=== PATIENT | male | born 1950 | race Caucasian/White ===

== ENCOUNTER → 2016-09-29 | Outpatient (CLI) | payer MEDICARE ==
--- NOTE | 2016-10-01 15:30 | XCELERA REPORT ---
[address] [address] Lower Extremity Arterial Evaluation Name: GLENN GARCIA Age: 66 yrs Gender: Male : 1950 Patient Status: Outpatient Patient Location: Study Date: 09/29/2016 11:14 AM Procedure: A color flow and duplex scan of the lower extremity arteries was performed bilaterally with velocity and waveform anaylsis. Ankle brachial indicies performed. Reason For Study: PVD Ordering Physician: TOMMIE HOLBROOK Performed By: Frida Hendrickson Measurements and Calculations Right Left FIELD ASSOCIATE PSV 106.2 67.2 cm/sec Prox PFA PSV 55.6 48.0 cm/sec Prox SFA PSV 82.3 72.0 cm/sec Mid SFA PSV -69.8 -73.5 cm/sec Dist SFA PSV -93.8 -74.3 cm/sec Prox Pop A PSV 85.0 87.7 cm/sec Dist MARIO PSV 50.8 61.6 cm/sec Dist [employer]P [employer] PSV 107.5 88.6 cm/sec Elias Pedis PSV 40.4 29.7 cm/sec Right Side Arterial Evaluation Normal velocity and triphasic waveforms noted from the Common Femoral artery to the infrageniculate vessels. 0 % stenosis noted. Ankle Brachial index is 1.44. Left Side Arterial Evaluation Normal velocity and triphasic waveforms noted from the Common Femoral artery to the infrageniculate vessels. 0 % stenosis noted. Ankle Brachial index is 1.31. Interpretation Summary No hemodynamically significant lesions in the bilateral lower extremities, on duplex imaging, at rest. : TOMMIE HOLBROOK > David Jurado
== END ==
LOC: SP 10:30
PROVIDERS: ATTEND Internal Medicine Endocrinology, Diabetes & Metabolism
DX: I73.9 Peripheral vascular disease, unspecified (principal)
CPT/HCPCS: 93925

== ENCOUNTER 2016-11-17 12:10 | Day surgery (SDC) | payer MEDICARE, BC ==
[~2016-11-17 12:10] MED LIST: DIPHENHYDRAMINE HCL 50 MG/ML VIAL ONE; EPINEPHRINE INJ 1 MG/10 ML DISP.SYRIN ONE; FLUMAZENIL INJ 0.5 MG/5 ML VIAL IV ONE; GLUCAGON,HUMAN RECOMB 1 MG INJ ONE; NALOXONE HCL INJ/PF 0.4 MG/1 ML SDV ONE; ONDANSETRON HCL INJ/PF 4 MG/2 ML SDV ONE
[2016-11-17] MEDS: MIDAZOLAM 2 MG/2 ML INJ ONE ×3 (13:00→13:17)
[2016-11-17] MEDS: FENTANYL CITRATE INJ/PF 100 MCG/2 ML AMPUL ONE ×2 (13:05→13:09)
--- NOTE | 2016-11-17 13:53 | Operative Report ---
Operative Report DATE OF SURGERY: 11/17/16 Operative Report: The risks, benefits and alternatives of the procedure including risks of bleeding, perforation requiring surgery are explained to the patient detail and informed consent was obtained. Patient was taken back to the endoscopy suite and placed in the left, lateral decubital position. A rectal examination was done which did not reveal any masses tenderness or fissures. Timeout was called. Conscious sedation medications are provided. A rectal examination was done which did not reveal any masses, tears or fissures. An Olympus video scope was inserted into the patient's rectum. The scope was then gradually advanced all the way to the cecum. The cecum was identified by the usual anatomical landmarks including the ileocecal valve as well as appendiceal office. Photodocumentation was obtained. The scope was then sequentially pulled back. The rest segments of the colon including the ascending colon, hepatic flexure, transverse colon, splenic flexure, descending colon and finding to the rectosigmoid portions of the colon. Retroflexion maneuver was performed. The risks benefits and alternatives of the procedure explained to the patient in detail and informed consent is obtained. Another GIF Olympus video scope was inserted into the patient's mouth and hypopharynx, the esophagus is identified intubated and insufflated ,the scope was then advanced through the esophagus stomach and duodenum, retroflexion maneuver is done, the esophagus stomach and first and second portions of the duodenum examined PREOPERATIVE DIAGNOSIS: Personal history of polyp. Patient states that he had colonoscopy 10-15 years ago. Blood in stool. Change of bowel habits. Anorexia. Weight loss. Dyspepsia POSTOPERATIVE DIAGNOSIS: Large cecal polyp noted attached to a very large base not able to remove via therapeutic colonoscopy. Spoke with Dr. Keita, biopsies obtained, malignancy workup might be needed will need right hemicolectomy for removal. Significant diverticulosis. Internal hemorrhoids. Gastritis. Duodenitis. Biopsies obtained to rule out for Helicobacter pylori OPERATION: Colonoscopy with biopsy. EGD with biopsy SURGEON: ZAYDA ARCE ANESTHESIA: Moderate Sedation - 5 mg of Versed, 100 mcg of fentanyl. Conscious sedation monitoring time 30 minutes. TISSUE REMOVED OR ALTERED: Biopsies obtained of the polyp. These are likely superficial and may be a malignancy within the deeper portions of the polyp. Gastric biopsies obtained to rule out Helicobacter pylori COMPLICATIONS: None. ESTIMATED BLOOD LOSS: None. INTRAOPERATIVE FINDINGS: As described above. PROCEDURE: Patient tolerated procedure well. No immediate postprocedure complications are noted. Patient discharged in good condition. Discharge date 11/17/2016. Discharge diet: Regular. Discharge activity: Regular. 2-3 week follow-up to discuss findings. Patient is instructed to call the office or proceed to the emergency room should there be any further problems or questions. We will wait on biopsies. Case has been discussed with Dr. Keita
[2016-11-17 14:32] VITALS: BP 102/65
== END 2016-11-17 14:33 | disposition home or self-care (01) ==
LOC: END 12:10
PROVIDERS: ATTEND Internal Medicine Gastroenterology
PROC: 0DB68ZX Excision of Stomach, Via Natural or Artificial Opening Endoscopic, Diagnostic (ICD-10-PCS; principal; 2016-11-17 13:00)
PROC: 0DBH8ZX Excision of Cecum, Via Natural or Artificial Opening Endoscopic, Diagnostic (ICD-10-PCS; 2016-11-17 13:00)
DX: K92.1 Melena (principal); D12.0 Benign neoplasm of cecum; K29.50 Unspecified chronic gastritis without bleeding; R63.4 Abnormal weight loss; I10 Essential (primary) hypertension; E11.9 Type 2 diabetes mellitus without complications; E78.00 Pure hypercholesterolemia, unspecified; M19.90 Unspecified osteoarthritis, unspecified site; E78.5 Hyperlipidemia, unspecified; Z79.1 Long term (current) use of non-steroidal anti-inflammatories (NSAID); Z79.84 Long term (current) use of oral hypoglycemic drugs; Z79.82 Long term (current) use of aspirin; Z68.26 Body mass index [BMI] 26.0-26.9, adult; Z86.010 Personal history of colon polyps
CPT/HCPCS: 43239; 45380; 82962; 88342 ×2; 88305 ×2; J2250; J3010; J0171; J1200; J1610; J2310; J2405; J3490

== ENCOUNTER 2016-12-20 09:19 | Inpatient (IN) | payer MEDICARE, BC ==
[2016-12-13 11:01] LABS: HEMATOCRIT 50.2 % (37.9-51.0); HGB HCT DIFFERENCE -2.2; MEAN CORPUSCULAR HEMOGLOBIN 27.9 pg (27.0-33.4); MEAN CORPUSCULAR HGB CONC 31.8 g/dL (32.0-36.0); MEAN CORPUSCULAR VOLUME 88 fl (80-97); RED BLOOD COUNT 5.73 10^6/uL (4.35-5.55); RED CELL DISTRIBUTION WIDTH 14.3 % (11.5-14.0); WHITE BLOOD COUNT 11.7 10^3/uL (4.0-10.5)
[2016-12-13 11:23] LABS: ANION GAP 14 (5-19); BLOOD UREA NITROGEN 22 mg/dL (7-20); CALCIUM 9.4 mg/dL (8.4-10.2); CARBON DIOXIDE 24 mmol/L (22-30); CHLORIDE 102 mmol/L (98-107); CREATININE RESULT 0.81 mg/dL (0.52-1.25); GLUCOSE 89 mg/dL (75-110); POTASSIUM 4.7 mmol/L (3.6-5.0)
[2016-12-13 11:51] LABS: CARCINOEMBRYONIC ANTIGEN 1.6 ng/mL (<3.0)
--- NOTE | 2016-12-13 12:40 | EKG REPORT ---
SEVERITY:- NORMAL ECG - SINUS RHYTHM : Confirmed by: Marybeth Bocanegra MD 13-Dec-2016 12:40:07
[~2016-12-20 09:19] MED LIST changes: -DIPHENHYDRAMINE HCL 50 MG/ML VIAL ONE; -EPINEPHRINE INJ 1 MG/10 ML DISP.SYRIN ONE; +ERTAPENEM SODIUM 1 GM in NORMAL SALINE 50 ML IV PRN; -FLUMAZENIL INJ 0.5 MG/5 ML VIAL IV ONE; -GLUCAGON,HUMAN RECOMB 1 MG INJ ONE; +GLYCOPYRROLATE INJ 0.4 MG/2 ML VIAL ONE; +LACTATED RINGERS 1000 ML IV PRN; +LIDOCAINE 0.5% INJ-PF (5 MG/ML) 50 ML SDV SUBCUT PRN; +LIDOCAINE 2% INJ-PF (20 MG/ML) 10 ML AMPUL ONE; +METOCLOPRAMIDE HCL INJ/PF 10 MG/2 ML SDV ONE; -NALOXONE HCL INJ/PF 0.4 MG/1 ML SDV ONE; +NEOSTIGMINE METHYLSULFATE 10 MG/10 ML VIAL ONE; +ROCURONIUM BROMIDE INJ 50 MG/5 ML VIAL IV ONE; +SUCCINYLCHOLINE CHLORIDE INJ 200 MG/10 ML VIAL ONE
[2016-12-20] MEDS ORDERED: BUPIVACAINE HCL 0.25 % INJ/PF (2.5 MG/1 ML) 30 ML VIAL ONE (10:08)
[2016-12-20] MEDS ORDERED: PROPOFOL INJ 200 MG/20 ML VIAL IV ONE (13:48)
[2016-12-20] MEDS ORDERED: IBUPROFEN INJ 800 MG/8 ML VIAL IV ONE (13:48)
[2016-12-20] MEDS ORDERED: FENTANYL CITRATE INJ/PF 250 MCG/5 ML AMPULE ONE (13:48)
[2016-12-20] MEDS ORDERED: MIDAZOLAM 2 MG/2 ML INJ ONE (13:48)
[2016-12-20] MEDS ORDERED: MORPHINE SULFATE 10 MG/ML INJ ONE (13:49)
[2016-12-20] MEDS ORDERED: OXYCODONE-ACETAMINOPHEN 5-325 MG TABLET PO PRN ×2 (15:48)
[2016-12-20] MEDS ORDERED: PROMETHAZINE HCL INJ 25 MG/1 ML VIAL IV PRN ×2 (15:48)
[2016-12-20] MEDS ORDERED: DIPHENHYDRAMINE HCL 50 MG/ML VIAL IV PRN (15:48)
[2016-12-20] MEDS ORDERED: FENTANYL CITRATE INJ/PF 100 MCG/2 ML AMPUL IV PRN ×3 (15:48)
[2016-12-20] MEDS ORDERED: MEPERIDINE HCL/PF INJ 25 MG/1 ML DISP.SYRIN IV PRN (15:48)
[2016-12-20] MEDS ORDERED: MORPHINE SULFATE 10 MG/ML INJ IV PRN (15:48)
[2016-12-20] MEDS ORDERED: BUPIVACAINE HCL 0.25 % INJ/PF (2.5 MG/1 ML) 30 ML VIAL INJ ONE (16:45)
[2016-12-20] MEDS ORDERED: DEXTROSE 50%-WATER 25 GM/50 ML DISP.SYRIN IV PRN ×4 (17:16→17:22)
[2016-12-20] MEDS ORDERED: GLUCAGON,HUMAN RECOMB 1 MG INJ SUBCUT PRN (17:16)
[2016-12-20] MEDS ORDERED: DEXTROSE 40% GEL 15 GM TUBE PO PRN ×4 (17:16→17:22)
[2016-12-20] MEDS ORDERED: ONDANSETRON HCL INJ/PF 4 MG/2 ML SDV IV PRN (17:16)
--- NOTE | 2016-12-20 17:16 | Operative Report ---
Operative Report DATE OF SURGERY: 12/20/16 PREOPERATIVE DIAGNOSIS: Cecal polyp POSTOPERATIVE DIAGNOSIS: Cecal cancer OPERATION: Laparoscopic right hemicolectomy SURGEON: ALESSANDRO BLANC ANESTHESIA: GA TISSUE REMOVED OR ALTERED: Right colon COMPLICATIONS: None ESTIMATED BLOOD LOSS: 20 cc INTRAOPERATIVE FINDINGS: Large cecal mass with multiple lymph nodes palpable in the mesentery of the right colon. Bilateral inguinal hernias-- right side small left side moderate. Slightly fatty appearing liver otherwise normal. No abnormalities on the peritoneum. No abnormalities palpable on the omentum. PROCEDURE: Informed consent was obtained. Patient was brought to the operating room and placed on the operating room table in supine position. After satisfactory induction of general anesthesia patient's abdomen was prepped and draped in the usual sterile fashion. A supraumbilical midline incision was made dissection carried out through the fascia and the peritoneal cavity was entered without difficulty. A laparoscopic hand port was then inserted. 5 mm trocar was placed in the subxiphoid location. Another 5 mm trocar was placed between the hand port and the subxiphoid trocar site. A third 5 mm trocar was placed in the left lateral mid abdomen. Pneumoperitoneum was produced with good patient toleration. Laparoscopy demonstrated no peritoneal studding. No omental masses. No liver lesions although it had a slight fatty appearance. There was a adhesion at the left lateral segment of the liver. The liver felt smooth with no palpable masses. Palpable firm golf ball size mass was palpable in the cecum. There was a small right inguinal hernia noted and a moderate sized left inguinal hernia noted with no evidence of incarceration. Anterior surface of the stomach appeared normal. The right colon was mobilized at the line of Toldt. The hepatic flexure was completely mobilized. The hepatic flexure and the proximal transverse colon was mobilized off of the omentum. The duodenum was visualized and protected during the dissection. After sufficient mobility of the right colon was obtained, the right colon was delivered out of the peritoneum through the laparoscopic hand port. The right colon mass felt very suspicious for invasive carcinoma. There were multiple large nodes in the right colon mesentery. The ileocolic artery was taken near its origin to ensure complete mesenteric excision. It was taken by clamping dividing and tying. The terminal ileum was divided about 10 cm from the ileocecal junction using a CHRIS stapling device. The transverse colon was divided just right of midline using a CHRIS stapling device. The entire right colon mesentery was excised. Hemostasis appeared excellent. The specimen was opened off of the table revealing a highly suspicious cecal mass that felt very firm consistent with cecal cancer. The specimen was submitted to pathology. The transverse colon remnant appeared well vascularized and had triphasic Doppler signals. The terminal ileum and appear well vascularized as well. A [id number] functional end-to-end anastomosis was then created using a CHRIS stapling device. The enterotomy created to introduce the stapling device was closed with a TA stapling device. The anastomosis appeared secure with no ischemia. Hemostasis appeared excellent. Omentum was draped over the anastomosis. Pneumoperitoneum was reproduced hemostasis appeared excellent all trochars were removed under the direct vision of the laparoscope to ensure hemostasis. the HandPort fascial defect was closed with running PDS suture. All skin incisions were closed with alvin. Marcaine was injected at the incision sites. Patient tolerated procedure well with no apparent complications and was taken to the recovery area in stable condition.
[2016-12-20] MEDS ORDERED: GLUCAGON,HUMAN RECOMB 1 MG INJ IM PRN (17:22)
[2016-12-20] MEDS ORDERED: INSULIN REG, HUMAN 100 UNIT/ML 3 ML VIAL (PYX) SUBCUT PRN (17:22)
[2016-12-20] MEDS ORDERED: ONDANSETRON HCL INJ/PF 4 MG/2 ML SDV ONE (17:44)
[2016-12-20] MEDS ORDERED: PROMETHAZINE HCL INJ 25 MG/1 ML VIAL ONE (18:15)
[2016-12-20] MEDS: ATORVASTATIN CALCIUM 10 MG TABLET PO SCH (21:36)
[2016-12-20] MEDS: NORMAL SALINE 1000 ML 1,000 ML IV PRN (21:41)
[2016-12-20] MEDS: MORPHINE SULFATE 10 MG/ML INJ IV PRN (21:47)
--- NOTE | 2016-12-20 23:43 | PDOC PROGRESS REPORT ---
Subjective Subjective:: feels well. had nausea earlier. Better now. Only mild pain. Physical Exam Vital Signs: Temp Pulse Resp BP Pulse Ox 97.8 F 84 16 129/62 H 95 12/20/16 22:30 12/20/16 22:30 12/20/16 22:30 12/20/16 22:30 12/20/16 22:30 Intake & Output 12/19/16 12/20/16 12/21/16 06:59 06:59 06:59 Intake Total 2950 Output Total 580 Balance 2370 General appearance: PRESENT: no acute distress, cooperative Respiratory exam: PRESENT: clear to auscultation sunil Cardiovascular exam: PRESENT: RRR GI/Abdominal exam: PRESENT: other - Soft, nondistended, minimal tenderness. Results Laboratory Results: 12/13/16 10:20 12/13/16 10:20 Assessment & Plan - Diagnosis (1) Cecal cancer Is this a current diagnosis for this admission?: YesPlan: Status post laparoscopic right hemicolectomy. Patient looks good. Will likely start clear liquids tomorrow if his nausea has completely resolved.
[2016-12-21] MEDS: MORPHINE SULFATE 10 MG/ML INJ IV PRN ×5 (04:02→23:40)
[2016-12-21] MEDS: LANSOPRAZOLE 30 MG TAB.RAP.DR PO SCH (05:39)
[2016-12-21] MEDS: NORMAL SALINE 1000 ML 1,000 ML IV PRN (05:40)
[2016-12-21 06:17] LABS: HEMATOCRIT 47.3 % (37.9-51.0); HEMOGLOBIN 15.3 g/dL (13.5-17.0); HGB HCT DIFFERENCE -1.4; MEAN CORPUSCULAR HEMOGLOBIN 28.5 pg (27.0-33.4); MEAN CORPUSCULAR HGB CONC 32.4 g/dL (32.0-36.0); MEAN CORPUSCULAR VOLUME 88 fl (80-97); RED BLOOD COUNT 5.39 10^6/uL (4.35-5.55); RED CELL DISTRIBUTION WIDTH 13.4 % (11.5-14.0); WHITE BLOOD COUNT 14.6 10^3/uL (4.0-10.5)
[2016-12-21 06:47] LABS: ANION GAP 11 (5-19); BLOOD UREA NITROGEN 14 mg/dL (7-20); CALCIUM 9.2 mg/dL (8.4-10.2); CARBON DIOXIDE 24 mmol/L (22-30); CHLORIDE 102 mmol/L (98-107); CREATININE RESULT 0.83 mg/dL (0.52-1.25); GLUCOSE 121 mg/dL (75-110); POTASSIUM 5.8 mmol/L (3.6-5.0)
--- NOTE | 2016-12-21 09:48 | PDOC PROGRESS REPORT ---
Subjective Progress Note for:: 12/21/16 Subjective:: Feels well. No nausea. Hungry. Physical Exam Vital Signs: Temp Pulse Resp BP Pulse Ox 98.2 F 79 18 143/71 H 99 12/21/16 08:00 12/21/16 08:00 12/21/16 08:00 12/21/16 08:00 12/21/16 08:00 Intake & Output 12/20/16 12/21/16 12/22/16 06:59 06:59 06:59 Intake Total 3798 Output Total 1480 Balance 2318 Weight 88.4 kg General appearance: PRESENT: no acute distress, cooperative Respiratory exam: PRESENT: clear to auscultation sunil Cardiovascular exam: PRESENT: RRR GI/Abdominal exam: PRESENT: other - Soft, nondistended, minimal tenderness. Diminished bowel sounds Extremities exam: PRESENT: other - No swelling. Results Laboratory Results: 12/21/16 05:39 12/21/16 05:39 12/21/16 12/21/16 05:39 05:39 WBC 14.6 H RBC 5.39 Hgb 15.3 Hct 47.3 MCV 88 MCH 28.5 MCHC 32.4 RDW 13.4 Plt Count 175 Sodium 137.0 Potassium 5.8 H Chloride 102 Carbon Dioxide 24 Anion Gap 11 BUN 14 Creatinine 0.83 Est GFR ( Amer) > 60 Est GFR (Non-Af Amer) > 60 Glucose 121 H Calcium 9.2 Assessment & Plan - Diagnosis (1) Cecal cancer Is this a current diagnosis for this admission?: YesPlan: Status post laparoscopic right hemicolectomy. Patient looks good. Start liquids. DC Null. Continue with patient ambulation.
[2016-12-21] MEDS ORDERED: NORMAL SALINE 1000 ML 1,000 ML IV PRN (09:49)
[2016-12-21] MEDS ORDERED: (PENDING PHARMACY ID) (Omeprazole [Omeprazole] 1 TAB) PO SCH (10:00)
[2016-12-21] MEDS ORDERED: (PENDING PHARMACY ID) (Lisinopril [Prinivil 20 Mg Tablet] 20 MG) PO SCH (10:00)
[2016-12-21] MEDS: ENOXAPARIN SODIUM INJ 40 MG/0.4 ML DISP.SYRIN SUBCUT SCH (10:49)
[2016-12-21] MEDS: AMLODIPINE BESYLATE 5 MG TABLET PO SCH (10:49)
[2016-12-21] MEDS: LISINOPRIL 10 MG TABLET PO SCH (10:49)
[2016-12-21 11:20] LABS: ANION GAP 13 (5-19); BLOOD UREA NITROGEN 12 mg/dL (7-20); CALCIUM 8.9 mg/dL (8.4-10.2); CARBON DIOXIDE 21 mmol/L (22-30); CHLORIDE 101 mmol/L (98-107); CREATININE RESULT 0.81 mg/dL (0.52-1.25); GLUCOSE 144 mg/dL (75-110); SODIUM 135.4 mmol/L (137-145)
[2016-12-21 11:30] LABS: POTASSIUM 4.5 mmol/L (3.6-5.0)
[2016-12-21] MEDS: ATORVASTATIN CALCIUM 10 MG TABLET PO SCH (21:46)
[2016-12-21] MEDS ORDERED: ZOLPIDEM TARTRATE 5 MG TABLET PO ONE (23:00)
[2016-12-22] MEDS: LANSOPRAZOLE 30 MG TAB.RAP.DR PO SCH (05:50)
[2016-12-22] MEDS: LISINOPRIL 10 MG TABLET PO SCH (09:30)
[2016-12-22] MEDS: AMLODIPINE BESYLATE 5 MG TABLET PO SCH (09:30)
--- NOTE | 2016-12-22 09:48 | PDOC PROGRESS REPORT ---
Subjective Progress Note for:: 12/22/16 Subjective:: Feels well. Still has not passed any gas. Tolerating clears. Physical Exam Vital Signs: Temp Pulse Resp BP Pulse Ox 99.8 F 85 20 91/66 L 96 12/22/16 08:00 12/22/16 08:00 12/22/16 08:00 12/22/16 08:00 12/22/16 08:00 Intake & Output 12/21/16 12/22/16 12/23/16 06:59 06:59 06:59 Intake Total 3798 1085 Output Total 1480 Balance 2318 1085 Weight 88.4 kg 87.2 kg General appearance: PRESENT: no acute distress, cooperative Respiratory exam: PRESENT: clear to auscultation sunil Cardiovascular exam: PRESENT: RRR GI/Abdominal exam: PRESENT: other - Soft, nondistended, active bowel sounds. Mild tenderness with no peritoneal signs. Extremities exam: PRESENT: other - No swelling Results Laboratory Results: 12/21/16 05:39 12/21/16 10:55 12/21/16 10:55 Sodium 135.4 L Potassium 4.5 D Chloride 101 Carbon Dioxide 21 L Anion Gap 13 BUN 12 Creatinine 0.81 Est GFR ( Amer) > 60 Est GFR (Non-Af Amer) > 60 Glucose 144 H Calcium 8.9 Assessment & Plan - Diagnosis (1) Cecal cancer Is this a current diagnosis for this admission?: YesPlan: Status post laparoscopic right hemicolectomy. Patient looks good. New liquids. Continue to encourage ambulation.
[2016-12-22] MEDS: ENOXAPARIN SODIUM INJ 40 MG/0.4 ML DISP.SYRIN SUBCUT SCH (11:59)
[2016-12-22] MEDS: ATORVASTATIN CALCIUM 10 MG TABLET PO SCH (21:45)
[2016-12-22] MEDS ORDERED: ZOLPIDEM TARTRATE 5 MG TABLET PO SCH (22:00)
[2016-12-23] MEDS: LANSOPRAZOLE 30 MG TAB.RAP.DR PO SCH (05:49)
--- NOTE | 2016-12-23 07:44 | PDOC PROGRESS REPORT ---
Subjective Progress Note for:: 12/23/16 Subjective:: Feels well. Tolerated the solids. Passed gas. no Pain Physical Exam Vital Signs: Temp Pulse Resp BP Pulse Ox 98.4 F 80 16 121/56 L 97 12/22/16 23:21 12/22/16 23:21 12/22/16 23:21 12/22/16 23:21 12/22/16 23:21 Intake & Output 12/22/16 12/23/16 12/24/16 06:59 06:59 06:59 Intake Total 1085 1500 Balance 1085 1500 Weight 87.2 kg 86.4 kg General appearance: PRESENT: no acute distress, cooperative Respiratory exam: PRESENT: clear to auscultation sunil Cardiovascular exam: PRESENT: RRR GI/Abdominal exam: PRESENT: other - Soft, nondistended, minimal tenderness. Wounds clean dry and intact. Extremities exam: PRESENT: other - no Swelling. Results Laboratory Results: 12/21/16 05:39 12/21/16 10:55 Assessment & Plan - Diagnosis (1) Cecal cancer Is this a current diagnosis for this admission?: YesPlan: Status post laparoscopic right hemicolectomy. Patient looks good. Tolerating diet well. Will discharge patient home.
--- NOTE | 2016-12-23 08:13 | DISCHARGE SUMMARY E ---
Discharge Summary NAME: GLENN GARCIA : 1950 AGE: 66Y ADMITTED: 12/20/2016 DISCHARGED: 12/23/2016 DISCHARGE DIAGNOSIS: Cecal cancer. PROCEDURE PERFORMED DURING HOSPITALIZATION: Laparoscopic right hemicolectomy performed by Dr. Derek Blanc on 12/20/2016. HOSPITAL COURSE: The patient underwent the above-mentioned surgery. He was noted with a large cecal mass that was highly suspicious for cecal cancer along with multiple enlarged mesenteric lymph nodes. Pathology report is still pending at the time of discharge. The patient did well postoperatively and had good toleration of a solid diet and was passing gas with a soft, nontender belly at the time of discharge. The patient is now being discharged to home in good condition. He will follow up with me next Monday. He is encouraged to stay active at home but avoid strenuous activity. He may resume all of his home medications. Additional medication is Percocet 1 p.o. q.4 h. p.r.n. pain. He may shower. DICTATING PHYSICIAN: DEREK BLANC M.D. [id number] PHY#: [id number] ID: [id number] JOB#: [id number] ACCT: [id number] cc:ROBERTA ARCE M.D., DEREK Hay >
[2016-12-23 09:24] VITALS: BP 137/67
[2016-12-23] MEDS ORDERED: (PENDING PHARMACY ID) (Canagliflozin [Invokana] 300 MG) PO SCH (10:00)
[2016-12-23] MEDS ORDERED: METFORMIN HCL 500 MG TABLET PO SCH (10:00)
== END 2016-12-23 09:48 | disposition home or self-care (01) | DRG 330 ==
LOC: INOR 09:19 → 4N 19:12
PROVIDERS: ADMIT Surgery; ATTEND Surgery
PROC: 0DTF4ZZ Resection of Right Large Intestine, Percutaneous Endoscopic Approach (ICD-10-PCS; principal; 2016-12-20 11:30)
DX: C18.0 Malignant neoplasm of cecum (principal); C77.2 Secondary and unspecified malignant neoplasm of intra-abdominal lymph nodes; K40.20 Bilateral inguinal hernia, without obstruction or gangrene, not specified as recurrent; E11.9 Type 2 diabetes mellitus without complications; I10 Essential (primary) hypertension; K21.9 Gastro-esophageal reflux disease without esophagitis; Z79.899 Other long term (current) drug therapy; Z79.84 Long term (current) use of oral hypoglycemic drugs
CPT/HCPCS: 36415; 790; 80048; 82378; 82962; 85027; 88309; 93005; 93010; J0330; J1335; J1650; J1741; J2250; J2270; J2405; J2550; J2704; J2765; J3010; J3490; J7030

== ENCOUNTER → 2017-01-03 | Outpatient (CLI) | payer MEDICARE, BC ==
--- NOTE | 2017-01-03 08:48 | RADIOLOGY REPORT (SQ) ---
EXAM DESCRIPTION: CT CHEST WITH COMPLETED DATE/TIME: 01/03/2017 8:09 am REASON FOR STUDY: COLON CA (C18.9) C18.9 MALIGNANT NEOPLASM OF COLON, UNSPECIFIED COMPARISON: 07/09/2011. TECHNIQUE: CT scan of the chest performed using helical scanning technique with dynamic intravenous contrast injection. Images reviewed with lung, soft tissue and bone windows. Reconstructed coronal and sagittal MPR images reviewed. All images stored on PACS. All CT scanners at this facility use dose modulation, iterative reconstruction, and/or weight based d osing when appropriate to reduce radiation dose to as low as reasonably achievable (ALARA). [facility]: Dose Right [facility]: CareDose [facility]: Dose Right [facility]: Teradose 4D [facility]: [employer] CONTRAST TYPE AND DOSE: 95 mL Isovue 370- low osmolar. RENAL FUNCTION: BUN 12 creatinine 0.81. RADIATION DOSE: . LIMITATIONS: None. FINDINGS: LUNGS AND PLEURA: No opacities, nodules, masses. No pneumothorax. No effusions. HILAR AND MEDIASTINAL STRUCTURES: No identified masses or abnormal nodes. HEART AND VASCULAR STRUCTURES: No aneurysm or dissection. No central pulmonary emboli. No pericardi al effusion. HARDWARE: None in the chest. UPPER ABDOMEN: No significant findings. Limited exam. THYROID AND OTHER SOFT TISSUES: No masses. No adenopathy. BONES: No significant finding. OTHER: No other significant finding. IMPRESSION: NORMAL CT OF THE CHEST WITH IV CONTRAST. TECHNICAL DOCUMENTATION: JOB ID: [id number] Quality ID # [id number]: Final reports with documentation of one or more dose reduction techniques (e.g., Au tomated exposure control, adjustment of the mA and/or kV according to patient size, use of iterative reconstruction technique) 2010 [employer]- All Rights Reserved
--- NOTE | 2017-01-03 08:56 | RADIOLOGY REPORT (SQ) ---
EXAM DESCRIPTION: CT ABD/PELVIS WITH IV ORAL COMPLETED DATE/TIME: 01/03/2017 8:09 am REASON FOR STUDY: COLON CA (C18.9) C18.9 MALIGNANT NEOPLASM OF COLON, UNSPECIFIED COMPARISON: None. TECHNIQUE: CT scan of the abdomen and pelvis performed with intravenous and oral contrast using hola ajith scanning technique with dynamic intravenous contrast injection. Images reviewed with lung, soft t issue, and bone windows. Reconstructed coronal and sagittal MPR images reviewed. Delayed images for e valuation of the urinary system also acquired. All images stored on PACS. All CT scanners at this facility use dose modulation, iterative reconstruction, and/or weight based d osing when appropriate to reduce radiation dose to as low as reasonably achievable (ALARA). [facility]: Dose Right [facility]: CareDose [facility]: Dose Right [facility]: Teradose 4D [facility]: [employer] CONTRAST TYPE AND DOSE: contrast/concentration: Isovue 370.00 mg/ml; Total Contrast Delivered: 95.0 ml; Total Saline Delivered: 70.0 ml RENAL FUNCTION: BUN 12 creatinine 0.81. RADIATION DOSE: Up-to-date CT equipment and radiation dose reduction techniques were employed. CTDIv ol: 8.7 - 21.3 mGy. DLP: 2308 mGy-cm.. LIMITATIONS: None. FINDINGS: LOWER CHEST: No significant findings. No nodules or infiltrates. LIVER: Normal size. No masses. No dilated ducts. SPLEEN: Normal size. No focal lesions. PANCREAS: No masses. No significant calcifications. No adjacent inflammation or peripancreatic fluid collections. Pancreatic duct not dilated. GALLBLADDER: No identified stones by CT criteria. No inflammatory changes to suggest cholecystitis. ADRENAL GLANDS: No significant masses or asymmetry. RIGHT KIDNEY AND URETER: Small cortical cysts. No solid masses. No significant calcification. No hyd ronephrosis or hydroureter. LEFT KIDNEY AND URETER: No solid masses. No significant calcification. No hydronephrosis or hydrouret er. AORTA AND VESSELS: No aneurysm. No dissection. Renal arteries, SMA, celiac without stenosis. RETROPERITONEUM: No retroperitoneal adenopathy, hemorrhage or masses. BOWEL AND PERITONEAL CAVITY: No obstruction. No visualized masses. No free fluid. Previous right hem icolectomy. Scattered colonic diverticuli. Suboptimal contrast distention of the descending and sig moid colon. No inflammatory changes or thickening of bowel wall. APPENDIX: Surgically absent. PELVIS: No significant masses. Normal bladder. No free fluid. ABDOMINAL WALL: No masses. No hernias. BONES: No significant or acute findings. OTHER: No other significant finding. IMPRESSION: 1. SMALL CORTICAL CYSTS IN THE RIGHT KIDNEY. 2. RECENT RIGHT HEMICOLECTOMY. COLONIC DIVERTICULOSIS. 3. NO OTHER SIGNIFICANT OR ACUTE FINDINGS IN THE ABDOMEN OR PELVIS. TECHNICAL DOCUMENTATION: JOB ID: [id number] Quality ID # [id number]: Final reports with documentation of one or more dose reduction techniques (e.g., Au tomated exposure control, adjustment of the mA and/or kV according to patient size, use of iterative reconstruction technique) 2010 [employer]- All Rights Reserved
== END ==
LOC: RAD 07:20
PROVIDERS: ATTEND Surgery
DX: C18.9 Malignant neoplasm of colon, unspecified (principal)
CPT/HCPCS: 71260; 74177

== ENCOUNTER 2017-01-17 11:23 | Day surgery (SDC) | payer MEDICARE, BC ==
[~2017-01-17 11:23] MED LIST changes: +ACETAMINOPHEN 325 MG TABLET PO PRN; +CEFAZOLIN 1 GM/D5W RTU 1 GM/50 ML RTUPB IV PRN; -ERTAPENEM SODIUM 1 GM in NORMAL SALINE 50 ML IV PRN; -GLYCOPYRROLATE INJ 0.4 MG/2 ML VIAL ONE; -LACTATED RINGERS 1000 ML IV PRN; -LIDOCAINE 0.5% INJ-PF (5 MG/ML) 50 ML SDV SUBCUT PRN; -LIDOCAINE 2% INJ-PF (20 MG/ML) 10 ML AMPUL ONE; -METOCLOPRAMIDE HCL INJ/PF 10 MG/2 ML SDV ONE; -NEOSTIGMINE METHYLSULFATE 10 MG/10 ML VIAL ONE; -ONDANSETRON HCL INJ/PF 4 MG/2 ML SDV ONE; -ROCURONIUM BROMIDE INJ 50 MG/5 ML VIAL IV ONE; -SUCCINYLCHOLINE CHLORIDE INJ 200 MG/10 ML VIAL ONE
[2017-01-17] MEDS ORDERED: BUPIVACAINE HCL 0.25 % INJ/PF (2.5 MG/1 ML) 30 ML VIAL ONE (12:24)
--- NOTE | 2017-01-17 12:30 | RADIOLOGY REPORT (SQ) ---
EXAM DESCRIPTION: CHEST SINGLE VIEW COMPLETED DATE/TIME: 01/17/2017 12:18 pm REASON FOR STUDY: preop COMPARISON: CT dated 01/03/2017. Chest x-ray dated 07/09/2011. EXAM PARAMETERS: NUMBER OF VIEWS: One view. TECHNIQUE: Single frontal radiographic view of the chest acquired. RADIATION DOSE: NA LIMITATIONS: None. FINDINGS: LUNGS AND PLEURA: Minimal atelectasis versus scarring in the left base. No infiltrates, m asses or pneumothorax. No pleural effusion. MEDIASTINUM AND HILAR STRUCTURES: No masses. Contour normal. HEART AND VASCULAR STRUCTURES: Heart normal in size. Normal vasculature. BONES: No acute findings. HARDWARE: None in the chest. OTHER: No other significant finding. IMPRESSION: NO ACUTE RADIOGRAPHIC FINDING IN THE CHEST. TECHNICAL DOCUMENTATION: JOB ID: [id number]
[2017-01-17] MEDS ORDERED: MIDAZOLAM 2 MG/2 ML INJ ONE (12:56)
[2017-01-17] MEDS ORDERED: FENTANYL CITRATE INJ/PF 100 MCG/2 ML AMPUL ONE (12:56)
[2017-01-17] MEDS ORDERED: LIDOCAINE 2% INJ-PF (20 MG/ML) 10 ML AMPUL ONE (12:56)
[2017-01-17] MEDS ORDERED: ONDANSETRON HCL INJ/PF 4 MG/2 ML SDV ONE (12:57)
[2017-01-17] MEDS ORDERED: ACETAMINOPHEN 100 ML IV ONE (12:57)
[2017-01-17] MEDS ORDERED: PROPOFOL INJ 200 MG/20 ML VIAL IV ONE (12:57)
[2017-01-17] MEDS ORDERED: SCOPOLAMINE HYDROBROMIDE 1.5 MG PATCH.TD72 ONE (13:14)
[2017-01-17] MEDS ORDERED: OXYCODONE-ACETAMINOPHEN 5-325 MG TABLET PO PRN ×3 (13:58→14:25)
[2017-01-17] MEDS ORDERED: FENTANYL CITRATE INJ/PF 100 MCG/2 ML AMPUL IV PRN ×3 (13:58)
[2017-01-17] MEDS ORDERED: MEPERIDINE HCL/PF INJ 25 MG/1 ML DISP.SYRIN IV PRN (13:58)
[2017-01-17] MEDS ORDERED: ONDANSETRON HCL INJ/PF 4 MG/2 ML SDV IV PRN ×2 (13:58→14:25)
[2017-01-17] MEDS ORDERED: DIPHENHYDRAMINE HCL 50 MG/ML VIAL IV PRN (13:58)
[2017-01-17] MEDS ORDERED: MORPHINE SULFATE 10 MG/ML INJ IV PRN (13:58)
[2017-01-17] MEDS ORDERED: PROMETHAZINE HCL INJ 25 MG/1 ML VIAL IV PRN ×2 (13:58)
[2017-01-17] MEDS ORDERED: RINGERS SOLUTION,LACTATED 1,000 ML IV PRN (14:25)
--- NOTE | 2017-01-17 14:30 | PDOC DISCHARGE SUMMARY ---
Discharge Summary (SDC) - Discharge Final Diagnosis: Colon cancer Date of Surgery: 01/17/17 Discharge Date: 01/17/17 Condition: Good Treatment or Instructions: Underwent right subclavian single-lumen PowerPort placement. May discharge patient home when met discharge criteria. May shower in 2 days. Keep Steri- Strips on. Port-A-Cath may be used. Prescriptions: Oxycodone HCl/Acetaminophen [Percocet 5-325 mg Tablet] 1 - 2 tab PO ASDIR PRN # 25 tablet PRN Reason: Discharge Diet: As Tolerated Discharge Activity: Activity As Tolerated Report the Following to Your Physician Immediately: Fever over 101 Degrees, Unusual Bleeding, Redness, Drainage-Foul Smelling Other Items to Report to MD: Shortness of breath or chest pain
--- NOTE | 2017-01-17 14:31 | Operative Report ---
Operative Report DATE OF SURGERY: 01/17/17 PREOPERATIVE DIAGNOSIS: Colon cancer POSTOPERATIVE DIAGNOSIS: Colon cancer OPERATION: Right subclavian single-lumen PowerPort placement (permanent implanted central venous access placed via fluoroscopic guidance) SURGEON: ALESSANDRO BLANC ANESTHESIA: LMAC TISSUE REMOVED OR ALTERED: None COMPLICATIONS: None ESTIMATED BLOOD LOSS: Minimal INTRAOPERATIVE FINDINGS: None PROCEDURE: Informed consent was obtained. Patient was brought to the operating room and placed on the operating room table in the supine position. Procedure was done under LMAC. Patient's right neck and chest were prepped and draped in usual sterile fashion. Local anesthetic was administered. Patient was placed in the Trendelenburg position. The right subclavian vein was entered however the guidewire was too large for the caliber of the replacement needle. The original needle had been dropped during prepping the patient. In the process of obtaining a thinner guidewire, access was lost. Using the needle from a new kit, the right subclavian vein was entered without difficulty and guidewire was placed into the central circulation under fluoroscopic guidance. A subcutaneous pocket was created in the patient's right upper chest. Single- lumen catheter was tunneled between the 2 incision sites and catheter was fed into the central circulation under fluoroscopic guidance via the introducer catheter. The tip was placed at the superior vena cava right atrial junction. It was attached to the PowerPort device which was then implanted into the subcutaneous pocket. The PowerPort withdrew blood and flushed easily. Hemostasis appeared to be good. The wounds were closed with deep dermal interrupted Vicryl sutures followed by running subcuticular Monocryl suture. Patient tolerated procedure well with no apparent complications and was taken to the recovery area in stable condition. Stat portable chest x-ray was ordered in the recovery room.
--- NOTE | 2017-01-17 14:48 | RADIOLOGY REPORT (SQ) ---
EXAM DESCRIPTION: CHEST SINGLE VIEW COMPLETED DATE/TIME: 01/17/2017 2:39 pm REASON FOR STUDY: portacath placed COMPARISON: 01/17/2017. EXAM PARAMETERS: NUMBER OF VIEWS: One view. TECHNIQUE: Single frontal radiographic view of the chest acquired. RADIATION DOSE: NA LIMITATIONS: None. FINDINGS: LUNGS AND PLEURA: No opacities, masses or pneumothorax. No pleural effusion. MEDIASTINUM AND HILAR STRUCTURES: No masses. Contour normal. HEART AND VASCULAR STRUCTURES: Heart normal in size. Normal vasculature. BONES: No acute findings. HARDWARE: Vascular access port. Tip of the catheter at the level of the superior vena cava. OTHER: No other significant finding. IMPRESSION: VASCULAR ACCESS PORT IN APPROPRIATE POSITION. NO PNEUMOTHORAX. TECHNICAL DOCUMENTATION: JOB ID: [id number]
[2017-01-17 16:26] VITALS: BP 122/77
--- NOTE | 2017-01-17 16:42 | RADIOLOGY REPORT (SQ) ---
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 FLUOROSCOPY TIME: 0.5 minutes. 1 images saved to PACS. TECHNIQUE: Intra-operative images acquired during surgical procedure to evaluate progress. NUMBER OF IMAGES: 1 image. LIMITATIONS: None. FINDINGS: Image of the chest acquired during catheter placement. IMPRESSION: IMAGE(S) OBTAINED DURING PROCEDURE. COMMENT: Quality ID [id number]: Final reports for procedures using fluoroscopy that document radiation exp osure indices, or exposure time and number of fluorographic images (if radiation exposure indices are not available) Please consult full operative report of the attending physician for description of the procedure. TECHNICAL DOCUMENTATION: JOB ID: [id number] [employer]- All Rights Reserved
== END 2017-01-17 16:05 | disposition home or self-care (01) ==
LOC: OROUT 11:23
PROVIDERS: ATTEND Surgery
PROC: 05H533Z Insertion of Infusion Device into Right Subclavian Vein, Percutaneous Approach (ICD-10-PCS; principal; 2017-01-17 13:30)
DX: C18.2 Malignant neoplasm of ascending colon (principal); E11.9 Type 2 diabetes mellitus without complications; I10 Essential (primary) hypertension; E78.00 Pure hypercholesterolemia, unspecified; M19.90 Unspecified osteoarthritis, unspecified site; G40.909 Epilepsy, unspecified, not intractable, without status epilepticus
CPT/HCPCS: 36561; 82962; 71010; 77001; C1752; C1788; J2250; J0690; J3010; J2405; J2704; J3490; J1642; J0131; 532

== ENCOUNTER → 2017-05-08 | Outpatient (CLI) | payer MEDICARE, BC | LOC: OD 11:08 | PROVIDERS: ATTEND Surgery | DX: C18.9 Malignant neoplasm of colon, unspecified (principal) | CPT/HCPCS: 36415; 82378 ==

== ENCOUNTER 2017-05-11 10:22 | Outpatient (CLI) | payer MEDICARE, BC ==
[2017-05-11] MEDS ORDERED: ONDANSETRON HCL INJ/PF 4 MG/2 ML SDV IV PRN (10:32)
[2017-05-11] MEDS ORDERED: NORMAL SALINE 1000 ML 1,000 ML IV PRN (10:33)
[2017-05-11 10:36] VITALS: BP 123/63
== END 2017-05-11 11:41 | disposition home or self-care (01) ==
LOC: II 10:22 → 5TH 10:32 → II 11:41
PROVIDERS: ATTEND Internal Medicine
PROC: 3E0437Z Introduction of Electrolytic and Water Balance Substance into Central Vein, Percutaneous Approach (ICD-10-PCS; principal; 2017-05-11)
PROC: 3E043GC Introduction of Other Therapeutic Substance into Central Vein, Percutaneous Approach (ICD-10-PCS; 2017-05-11)
DX: E86.0 Dehydration (principal); R11.0 Nausea; C18.2 Malignant neoplasm of ascending colon
CPT/HCPCS: 96374; 96361; J2405; 96360; 96365; 96523

== ENCOUNTER 2017-05-25 13:11 | Outpatient (CLI) | payer MEDICARE, BC ==
[~2017-05-25 13:11] MED LIST changes: -ACETAMINOPHEN 325 MG TABLET PO PRN; -CEFAZOLIN 1 GM/D5W RTU 1 GM/50 ML RTUPB IV PRN; +NORMAL SALINE 1000 ML 1,000 ML IV PRN; +ONDANSETRON HCL INJ/PF 4 MG/2 ML SDV IV PRN
[2017-05-25 14:16] VITALS: BP 134/81
== END 2017-05-25 14:41 | disposition home or self-care (01) ==
LOC: II 13:11 → 5TH 13:14 → II 14:41
PROVIDERS: ATTEND Internal Medicine
PROC: 3E0437Z Introduction of Electrolytic and Water Balance Substance into Central Vein, Percutaneous Approach (ICD-10-PCS; principal; 2017-05-25)
PROC: 3E043GC Introduction of Other Therapeutic Substance into Central Vein, Percutaneous Approach (ICD-10-PCS; 2017-05-25)
DX: E86.0 Dehydration (principal); R11.0 Nausea; C18.2 Malignant neoplasm of ascending colon
CPT/HCPCS: 96374; 96361; J2405; 96360; 96523

== ENCOUNTER 2017-06-08 12:01 | Outpatient (CLI) | payer MEDICARE, BC ==
[2017-06-08 12:17] VITALS: BP 124/74
== END 2017-06-08 13:27 | disposition home or self-care (01) ==
LOC: II 12:01 → 5TH 12:03 → II 13:27
PROVIDERS: ATTEND Internal Medicine
PROC: 3E0437Z Introduction of Electrolytic and Water Balance Substance into Central Vein, Percutaneous Approach (ICD-10-PCS; principal; 2017-06-08)
PROC: 3E043GC Introduction of Other Therapeutic Substance into Central Vein, Percutaneous Approach (ICD-10-PCS; 2017-06-08)
DX: E86.0 Dehydration (principal); C18.2 Malignant neoplasm of ascending colon; R11.0 Nausea
CPT/HCPCS: 96375; 96360; J2405; 96361; 96374

== ENCOUNTER 2017-06-23 11:57 | Outpatient (CLI) | payer MEDICARE, BC ==
[2017-06-23 13:26] VITALS: BP 91/58
== END 2017-06-23 13:28 | disposition home or self-care (01) ==
LOC: II 11:57 → 5TH 12:04 → II 13:28
PROVIDERS: ATTEND Internal Medicine
PROC: 3E0337Z Introduction of Electrolytic and Water Balance Substance into Peripheral Vein, Percutaneous Approach (ICD-10-PCS; principal; 2017-06-23)
PROC: 3E033GC Introduction of Other Therapeutic Substance into Peripheral Vein, Percutaneous Approach (ICD-10-PCS; 2017-06-23)
DX: E86.0 Dehydration (principal); R11.0 Nausea; C18.2 Malignant neoplasm of ascending colon
CPT/HCPCS: 96375; 96376; 96360; J2405; 96361; 96365

== ENCOUNTER → 2017-07-31 | Outpatient (CLI) | payer MEDICARE, BC ==
--- NOTE | 2017-07-31 10:17 | RADIOLOGY REPORT (SQ) ---
EXAM DESCRIPTION: CT CHEST WITH; CT ABD/PELVIS WITH IV ORAL COMPLETED DATE/TIME: 07/31/2017 8:49 am REASON FOR STUDY: COLON CA (C18.2) C18.2 MALIGNANT NEOPLASM OF ASCENDING COLON COMPARISON: CT chest 07/09/2011, 05/02/2017 CT abdomen pelvis 05/02/2017 CONTRAST TYPE AND DOSE: contrast/concentration: Isovue 370.00 mg/ml; Total Contrast Delivered: 98.0 ml; Total Saline Delivered: 75.2 ml RENAL FUNCTION: Creatinine 0.8 TECHNIQUE: CT scan of the chest performed using helical scanning technique with dynamic intravenous contrast injection. Images reviewed with lung, soft tissue and bone windows. Reconstructed coronal a nd sagittal MPR images reviewed. All images stored on PACS. CT scan of the abdomen and pelvis performed with intravenous and with oral contrastusing helical scan lelia technique with dynamic intravenous contrast injection. Images reviewed with lung, soft tissue a nd bone windows. Reconstructed coronal and sagittal MPR images reviewed. Delayed images for evaluat ion of the urinary system also acquired and evaluated. All images stored on PACS. All CT scanners at this facility use dose modulation, iterative reconstruction, and/or weight based d osing when appropriate to reduce radiation dose to as low as reasonably achievable (ALARA). [facility]: Dose Right [facility]: CareDose [facility]: Dose Right [facility]: Teradose 4D [facility]: Dragonfly RADIATION DOSE: CT Rad equipment meets quality standard of care and radiation dose reduction techniq ues were employed. CTDIvol: 9.8 - 11.6 mGy. DLP: 1750 mGy-cm. . LIMITATIONS: None. FINDINGS: CHEST: LUNGS AND PLEURA: No opacities, nodules, masses. No pneumothorax. No effusions. HILAR AND MEDIASTINAL STRUCTURES: No identified masses or abnormal nodes. HEART AND VASCULAR STRUCTURES: No aneurysm or dissection. No central pulmonary emboli. No pericardi al effusion. HARDWARE: Right-sided permanent central line tip superior vena cava THYROID AND OTHER SOFT TISSUES: No masses. No adenopathy. BONES: No significant finding. OTHER: No other significant finding. ABDOMEN AND PELVIS: LIVER: Normal size. No masses. No dilated ducts. SPLEEN: Normal size. No focal lesions. PANCREAS: No masses. No significant calcifications. No adjacent inflammation or peripancreatic fluid collections. Pancreatic duct not dilated. GALLBLADDER: No identified stones by CT criteria. No inflammatory changes to suggest cholecystitis. ADRENAL GLANDS: No significant masses or asymmetry. RIGHT KIDNEY AND URETER: No solid masses. 1.6 cm cyst right upper pole kidney. 1 cm cyst right lowe r pole kidney. No significant calcification. No hydronephrosis or hydroureter. LEFT KIDNEY AND URETER: No solid masses. No significant calcification. No hydronephrosis or hydrouret er. AORTA AND VESSELS: No aneurysm. No dissection. Renal arteries, SMA, celiac without stenosis. RETROPERITONEUM: No retroperitoneal adenopathy, hemorrhage or masses. BOWEL AND PERITONEAL CAVITY: No masses or inflammatory changes. No free fluid or peritoneal masses. Post right partial colectomy. Scattered descending and sigmoid colon diverticuli without CT signs of acute diverticulitis APPENDIX: Surgically absent ABDOMINAL WALL: Fat containing bilateral inguinal hernias. There is a midline supraumbilical incisio n without hernia PELVIS: No mass or free fluid. Normal bladder. BONES: No significant or acute findings. OTHER: No other significant finding. IMPRESSION: No CT evidence of metastatic colon cancer to the chest abdomen or pelvis TECHNICAL DOCUMENTATION: JOB ID: [id number] Quality ID # [id number]: Final reports with documentation of one or more dose reduction techniques (e.g., Au tomated exposure control, adjustment of the mA and/or kV according to patient size, use of iterative reconstruction technique) 2010 [employer]- All Rights Reserved
== END ==
LOC: RAD 07:42
PROVIDERS: ATTEND Internal Medicine
DX: C18.2 Malignant neoplasm of ascending colon (principal)
CPT/HCPCS: 71260; 74177

== ENCOUNTER 2017-11-28 07:20 | Day surgery (SDC) | payer MEDICARE, BC ==
--- NOTE | 2017-11-21 23:33 | EKG REPORT ---
SEVERITY:- ABNORMAL ECG - SINUS RHYTHM FIRST DEGREE AV BLOCK : Confirmed by: Keisha Anne 21-Nov-2017 23:31:44
[~2017-11-28 07:20] MED LIST changes: +ACETAMINOPHEN 325 MG TABLET PO PRN; +LACTATED RINGERS 1000 ML IV PRN; -NORMAL SALINE 1000 ML 1,000 ML IV PRN; -ONDANSETRON HCL INJ/PF 4 MG/2 ML SDV IV PRN
[2017-11-28] MEDS ORDERED: PROPOFOL INJ 200 MG/20 ML VIAL IV ONE ×2 (08:30→10:05)
[2017-11-28] MEDS ORDERED: FENTANYL CITRATE INJ/PF 100 MCG/2 ML AMPUL IV PRN ×3 (09:33)
[2017-11-28] MEDS ORDERED: OXYCODONE-ACETAMINOPHEN 5-325 MG TABLET PO PRN ×2 (09:33)
[2017-11-28] MEDS ORDERED: MEPERIDINE HCL/PF INJ 25 MG/1 ML DISP.SYRIN IV PRN (09:33)
[2017-11-28] MEDS ORDERED: PROMETHAZINE HCL INJ 25 MG/1 ML VIAL IV PRN ×2 (09:33)
[2017-11-28] MEDS ORDERED: DIPHENHYDRAMINE HCL 50 MG/ML VIAL IV PRN (09:33)
--- NOTE | 2017-11-28 10:48 | Discharge Summary ---
Discharge Summary (SDC) - Discharge Final Diagnosis: normal screening clonoscopy, personal and family history of colon polyps Date of Surgery: 11/28/17 Discharge Date: 11/28/17 Condition: Stable Referrals: DEYSI BRANDT DO [Primary Care Provider] - Discharge Diet: As Tolerated Respiratory Treatments at Home: Deep Breathing/Coughing, Incentive Spirometer Discharge Activity: Activity As Tolerated Home Care Assistance: None Needed Report the Following to Your Physician Immediately: Shortness of Breath, Nausea , Vomiting, Increase in Pain, Fever over 101 Degrees, Unusual Bleeding
--- NOTE | 2017-11-28 10:53 | Operative Report ---
Nonrecallable Operative Report DATE OF SURGERY: 11/28/17 PREOPERATIVE DIAGNOSIS: Personal and family history of adenomatous colon polyps POSTOPERATIVE DIAGNOSIS: 1. Personal and family history of adenomatous colon polyps. 2. Normal screening colonoscopy OPERATION: Colonoscopy to the cecum SURGEON: ZHENG HILLIARD ANESTHESIA: LMAC TISSUE REMOVED OR ALTERED: None COMPLICATIONS: None apparent ESTIMATED BLOOD LOSS: Minimal PROCEDURE: After informed consent was obtained, the patient was laid in the left lateral decubitus position in the operating room. The endoscope was passed up the rectum, sigmoid colon, descending colon, across the transverse colon, down the ascending colon, and into the cecum. The ileocecal valve was then identified as well as the appendiceal orifice. The prep was fair. Multiple washings and suctionings were required in order to visualize the entirety of the mucosa. This was successful. The scope was then pulled back past the ascending colon, transverse colon, down the descending colon, sigmoid colon, and into the rectum. No masses, lesions, ulcerations, active bleeding, inflammation, or other abnormality could be identified throughout the colon. Retroflexion maneuver was performed in the rectum noting no internal hemorrhoids. The scope was straightened, air was suctioned from the rectum, the scope was removed, and the procedure was concluded. All sponge, instrument, and needle counts were correct 2. Addition: Stable. Recommendation: Repeat colonoscopy in 5 years due to a personal history and family history of adenomatous colon polyps.
[2017-11-28 11:59] VITALS: BP 108/72
--- NOTE | 2017-11-29 09:14 | Discharge Summary ---
Discharge Summary (SDC) - Discharge Final Diagnosis: multiple small colon polyps, h/o colectomy for cancer Date of Surgery: 11/28/17 Discharge Date: 11/28/17 Condition: Stable Forms: ASU Anesthesia D/C Instruction, Discharge POC-Surgical Service Referrals: ZHENG HILLIARD MD [ACTIVE STAFF] - 12/05/17 8:45 am Respiratory Treatments at Home: Deep Breathing/Coughing Discharge Activity: Activity As Tolerated, Balance Activity w/Rest, No Driving Home Care Assistance: None Needed Report the Following to Your Physician Immediately: Shortness of Breath, Vomiting, Increase in Pain, Fever over 101 Degrees, Unusual Bleeding, Large Clots, IV Site Infection Signs
--- NOTE | 2017-11-29 09:20 | Operative Report ---
Nonrecallable Operative Report DATE OF SURGERY: 11/28/17 PREOPERATIVE DIAGNOSIS: History of colon cancer. POSTOPERATIVE DIAGNOSIS: 1. History of colon cancer. 2. Multiple small colon polyps. OPERATION: 1. Colonoscopy to the ileocolic anastomosis. 2. Hot biopsy of multiple colon polyps. SURGEON: ZHENG HILLIARD ANESTHESIA: LMAC TISSUE REMOVED OR ALTERED: 1. Colon polyp at 95 cm 2. 2. Colon polyp at 60 cm. COMPLICATIONS: None apparent ESTIMATED BLOOD LOSS: Minimal PROCEDURE: After informed consent was obtained, the patient was laid in the left lateral decubitus position in the operating room. The endoscope was passed up the rectum, sigmoid colon, descending colon, across the transverse colon, to the area of the ileocolic anastomosis. The ileocolic anastomosis was identified. The scope was then withdrawn circumferentially noting the mucosa. The prep was very good. The scope was withdrawn past the transverse colon, and into the descending colon. At approximately 95 cm 2 small polyps were found in close proximity to one another. These were removed via hot biopsy forcep. The scope was withdrawn further. At 60 cm another small polyp was removed via hot biopsy forceps. The scope was withdrawn down the sigmoid colon into the rectum. A retroflexion maneuver was performed in the rectum, noting internal hemorrhoids that were not bleeding. The scope was straightened, air was suctioned from the rectum, the scope was removed, and the procedure was concluded. All sponge, instrument, and needle counts were correct 2. Condition: Stable.
== END 2017-11-28 11:50 | disposition home or self-care (01) ==
LOC: END 07:20
PROVIDERS: ATTEND Surgery
DX: Z12.11 Encounter for screening for malignant neoplasm of colon (principal); D12.6 Benign neoplasm of colon, unspecified; Z85.038 Personal history of other malignant neoplasm of large intestine; Z90.49 Acquired absence of other specified parts of digestive tract; E11.9 Type 2 diabetes mellitus without complications; I10 Essential (primary) hypertension; E78.00 Pure hypercholesterolemia, unspecified; G62.9 Polyneuropathy, unspecified; K21.9 Gastro-esophageal reflux disease without esophagitis; Z79.899 Other long term (current) drug therapy; Z79.84 Long term (current) use of oral hypoglycemic drugs; Z79.82 Long term (current) use of aspirin
CPT/HCPCS: 45384; 93005; 82962; 88305 ×2; 93010; J2704; 811

== ENCOUNTER → 2018-07-30 | Outpatient (CLI) | payer MEDICARE, BC ==
--- NOTE | 2018-07-30 13:27 | RADIOLOGY REPORT (SQ) ---
EXAM DESCRIPTION: CT CHEST WITH; CT ABD/PELVIS WITH IV ORAL COMPLETED DATE/TIME: 07/30/2018 9:30 am REASON FOR STUDY: COLON CA (C18.2) C18.2 MALIGNANT NEOPLASM OF ASCENDING COLON COMPARISON: CT chest abdomen pelvis 07/31/2017, 01/03/2017 CT chest 05/02/2017 CONTRAST TYPE AND DOSE: contrast/concentration: Isovue 350.00 mg/ml; Total Contrast Delivered: 100.0 ml; Total Saline Delivered: 72.0 ml RENAL FUNCTION: GFR > 60. TECHNIQUE: CT scan of the chest performed using helical scanning technique with dynamic intravenous contrast injection. Images reviewed with lung, soft tissue and bone windows. Reconstructed coronal a nd sagittal MPR images reviewed. All images stored on PACS. CT scan of the abdomen and pelvis performed with intravenous and with oral contrastusing helical scan lelia technique with dynamic intravenous contrast injection. Images reviewed with lung, soft tissue a nd bone windows. Reconstructed coronal and sagittal MPR images reviewed. Delayed images for evaluat ion of the urinary system also acquired and evaluated. All images stored on PACS. All CT scanners at this facility use dose modulation, iterative reconstruction, and/or weight based d osing when appropriate to reduce radiation dose to as low as reasonably achievable (ALARA). [facility]: Dose Right [facility]: CareDose [facility]: Dose Right [facility]: Teradose 4D [facility]: [employer]Inbox RADIATION DOSE: CT Rad equipment meets quality standard of care and radiation dose reduction techniq ues were employed. CTDIvol: 13.5 - 16.4 mGy. DLP: 2442 mGy-cm. . LIMITATIONS: None. FINDINGS: CHEST: LUNGS AND PLEURA: No opacities, nodules, masses. No pneumothorax. No effusions. HILAR AND MEDIASTINAL STRUCTURES: No identified masses or abnormal nodes. HEART AND VASCULAR STRUCTURES: No aneurysm or dissection. No central pulmonary emboli. No pericardi al effusion. Moderate coronary artery calcification HARDWARE: None in the chest THYROID AND OTHER SOFT TISSUES: No masses. No adenopathy. BONES: No significant finding. OTHER: No other significant finding. ABDOMEN AND PELVIS: LIVER: Normal size. No masses. No dilated ducts. SPLEEN: Normal size. No focal lesions. PANCREAS: No masses. No significant calcifications. No adjacent inflammation or peripancreatic fluid collections. Pancreatic duct not dilated. GALLBLADDER: No identified stones by CT criteria. No inflammatory changes to suggest cholecystitis. ADRENAL GLANDS: No significant masses or asymmetry. RIGHT KIDNEY AND URETER: No solid masses. 1.5 cm right upper pole renal cortical cyst, 1 cm right lo wer pole renal cortical cyst. No significant calcification. No hydronephrosis or hydroureter. LEFT KIDNEY AND URETER: No solid masses. No significant calcification. No hydronephrosis or hydrouret er. AORTA AND VESSELS: No aneurysm. No dissection. Renal arteries, SMA, celiac without stenosis. RETROPERITONEUM: No retroperitoneal adenopathy, hemorrhage or masses. BOWEL AND PERITONEAL CAVITY: Patient drank oral contrast. No CT evidence of bowel obstruction. No f ree intraperitoneal air or fluid. Old right hemicolectomy with anastomosis on coronal reconstruction images 36-42. Scattered sigmoid colon diverticuli without CT signs of acute diverticulitis APPENDIX: Surgically absent ABDOMINAL WALL: No masses. No hernias. PELVIS: No mass or free fluid. Normal bladder. BONES: No significant or acute findings. OTHER: No other significant finding. IMPRESSION: No CT evidence of metastatic disease to the chest abdomen or pelvis given history colon cancer Old right hemicolectomy TECHNICAL DOCUMENTATION: JOB ID: [id number] Quality ID # [id number]: Final reports with documentation of one or more dose reduction techniques (e.g., Au tomated exposure control, adjustment of the mA and/or kV according to patient size, use of iterative reconstruction technique) 2010 [employer]- All Rights Reserved Reading location - IP/workstation name: [email or web address]
== END ==
LOC: RAD 08:49
PROVIDERS: ATTEND Physician Assistant Medical
DX: C18.2 Malignant neoplasm of ascending colon (principal)
CPT/HCPCS: 71260; 74177; 82565

== ENCOUNTER 2019-04-17 06:29 | Day surgery (SDC) | payer MEDICARE, BC ==
[~2019-04-17 06:29] MED LIST changes: -ACETAMINOPHEN 325 MG TABLET PO PRN; +KETOROLAC TROMETHAMINE 0.45% 4 DROP/0.4 ML DROPERETTE OD PRN; -LACTATED RINGERS 1000 ML IV PRN
[2019-04-17] MEDS ORDERED: MIDAZOLAM 2 MG/2 ML INJ ONE (06:46)
[2019-04-17] MEDS ORDERED: FENTANYL CITRATE INJ/PF 100 MCG/2 ML AMPUL ONE (06:46)
[2019-04-17] MEDS: BESIFLOXACIN HCL 0.6% OPH SUSP 5 ML BOTTLE OD PRN ×4 (06:49→07:51)
[2019-04-17] MEDS: CYCLOPENTOLATE 0.2%/PHENYLEPHRINE 1% OPH SOLN 2 ML OD PRN ×3 (06:49→07:09)
[2019-04-17] MEDS: TROPICAMIDE 1% OPH SOLN 15 ML OD PRN ×3 (06:49→07:09)
[2019-04-17] MEDS: TETRACAINE HCL 0.5% OPH SOLN 4 ML OD PRN ×3 (06:50→07:30)
[2019-04-17] MEDS: LIDOCAINE 1% INJ-PF (10 MG/ML) 30 ML SDV ONE ×2 (07:36)
[2019-04-17] MEDS: CHONDR SU A NA/HYALUR INTRAOC KIT (SURGICARE) ONE ×2 (07:36)
[2019-04-17] MEDS: EPINEPHRINE INJ/PF 1 MG/1 ML AMPULE ONE ×2 (07:36)
[2019-04-17] MEDS ORDERED: CHONDR SU A NA/HYALUR SOD 0.5 ML DISP.SYRIN ONE (07:47)
[2019-04-17] MEDS: TOBRAMYCIN SULFATE/DEXAMETH OPH OINTMENT 3.5 GM ONE ×2 (07:51)
[2019-04-17] MEDS: DORZOLAMIDE HCL 2%/TIMOLOL MALEAT 0.5% OPH SOLN 10 ML OD PRN ×2 (07:51)
== END 2019-04-17 08:30 | disposition home or self-care (01) ==
LOC: SC 06:29
PROVIDERS: ATTEND Ophthalmology
DX: H25.11 Age-related nuclear cataract, right eye (principal); H40.1111 Primary open-angle glaucoma, right eye, mild stage; E11.9 Type 2 diabetes mellitus without complications; I10 Essential (primary) hypertension; E78.00 Pure hypercholesterolemia, unspecified; Z79.82 Long term (current) use of aspirin; Z79.4 Long term (current) use of insulin; Z79.84 Long term (current) use of oral hypoglycemic drugs
CPT/HCPCS: 0191T; 66984; 142; 82962; C1783; J0171; J2250; J3010; J3490; V2632

== ENCOUNTER 2019-05-08 07:46 | Day surgery (SDC) | payer MEDICARE, BC ==
[~2019-05-08 07:46] MED LIST changes: +CHONDR SU A NA/HYALUR INTRAOC KIT (SURGICARE) ONE; +DORZOLAMIDE HCL 2%/TIMOLOL MALEAT 0.5% OPH SOLN 10 ML OS PRN; +EPINEPHRINE INJ/PF 1 MG/1 ML AMPULE ONE; -KETOROLAC TROMETHAMINE 0.45% 4 DROP/0.4 ML DROPERETTE OD PRN; +KETOROLAC TROMETHAMINE 0.45% 4 DROP/0.4 ML DROPERETTE OS PRN; +LIDOCAINE 1% INJ-PF (10 MG/ML) 30 ML SDV ONE; +TOBRAMYCIN SULFATE/DEXAMETH OPH OINTMENT 3.5 GM ONE
[2019-05-08] MEDS: TETRACAINE HCL 0.5% OPH SOLN 4 ML OS PRN ×3 (08:02→08:54)
[2019-05-08] MEDS: BESIFLOXACIN HCL 0.6% OPH SUSP 5 ML BOTTLE OS PRN ×3 (08:03→09:24)
[2019-05-08] MEDS: TROPICAMIDE 1% OPH SOLN 15 ML OS PRN ×3 (08:03→08:28)
[2019-05-08] MEDS: CYCLOPENTOLATE 0.2%/PHENYLEPHRINE 1% OPH SOLN 2 ML OS PRN ×3 (08:03→08:28)
[2019-05-08] MEDS ORDERED: FENTANYL CITRATE INJ/PF 100 MCG/2 ML AMPUL ONE ×2 (08:44→09:02)
[2019-05-08] MEDS ORDERED: MIDAZOLAM 2 MG/2 ML INJ ONE ×2 (08:44→09:02)
--- NOTE | 2019-05-08 11:05 | EKG REPORT ---
SEVERITY:- ABNORMAL ECG - SINUS RHYTHM FIRST DEGREE AV BLOCK LEFT BUNDLE BRANCH BLOCK : Confirmed by: Marybeth Bocanegra MD 08-May-2019 11:04:52
== END 2019-05-08 10:19 | disposition home or self-care (01) ==
LOC: SC 07:46
PROVIDERS: ATTEND Ophthalmology
DX: H25.12 Age-related nuclear cataract, left eye (principal); H40.1121 Primary open-angle glaucoma, left eye, mild stage; Z98.41 Cataract extraction status, right eye; E11.9 Type 2 diabetes mellitus without complications; I10 Essential (primary) hypertension; E78.00 Pure hypercholesterolemia, unspecified; Z79.82 Long term (current) use of aspirin; Z79.899 Other long term (current) drug therapy; Z79.84 Long term (current) use of oral hypoglycemic drugs; Z79.4 Long term (current) use of insulin
CPT/HCPCS: 0191T; 66984; 142; 82962; 93005; 93010; J0171; J2250; J3010; J3490